=== PATIENT | female | born 1990 | race Caucasian/White ===

== ENCOUNTER 2017-09-08 03:06 | Emergency (ER) | payer OTHER, SELFPAY ==
[2017-09-08 03:07] VITALS: BP 137/97; PULSE 82; RESP 18; TEMP 36.4; O2SAT 100; BMI 37.5
[2017-09-08 03:16] LABS: Bedside Glucose 59 mg/dL (70-110)
--- NOTE | 2017-09-08 03:34 | ED.VISSUMM ---
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 She sat down to [facility] and was witnessed having altered mental status. Patient stated she remembers taking a bite of her food and felt like it was in her throat and then blacked out. She has had syncope remotely. She is on a diet currently. She is unsure what happened. Discussed with the aid what she saw. She stated that the patient had some shaking of her upper extremities and head. She did not awake her. Then she awoke without any postictal state and did not remember what happened. Brought now for further evaluation. Has never happened before. She feels normal. Physical Examination: [] Vital signs reviewed General: Well-nourished well-developed Head: Normocephalic atraumatic Eyes: Pupils equal round and reactive to light extraocular movements intact ENT: TMs clear no hemotympanum no trauma Neck: Nontender full range of motion Cardiovascular: Regular rate rhythm no murmurs normal S1-S2 Respiratory: No distress clear to auscultation bilaterally chest nontender Abdomen: Soft nontender nondistended normal bowel sounds no masses Back: Nontender no CVA tenderness Extremities: Nontender active range of motion ?4 extremities no trauma Skin: Normal color no trauma Neuro alert oriented cranial nerves II through XII intact normal strength sensation reflexes Test Results: [] Emergency Department Course and Treatment: [] Glucose test shows a level 59. Patient given oral challenge to bring that up. She is on no hypoglycemic medications. No history of diabetes. Lab work obtained. Negative for abnormality. Patient tolerated food and soda. Resting comfortably. I think her hypoglycemic event likely secondary to not eating for several hours a new diet and breast-feeding may be causing this to happen. Nonetheless I discussed with the patient the potential causes including insulin secreting tumor and she will follow-up as an outpatient. This is highly unlikely however. I discussed doing a CT of her head and I feel this is unnecessary as well. Patient agrees. She will follow-up and return if she worsens. She will eat more frequently. Treatment Plan: [] Disposition: [] Impression: [] Seizure secondary to hypoglycemic event This note was generated with Quoraation software. It may contain incorrect words, spelling, and punctuation that were not noted in review of the chart prior to signing ED Disposition - Plan for ED Patient: Chief Complaint: Seizure Referrals: Juan Pratt MD [Primary Care Provider] -
[2017-09-08 03:40] LABS: Absolute Lymphocyte Count 2.26 X10^3/ul (0.83-4.51); Absolute Neutrophil Count 4.7 X10^3/uL (2.0-7.7); Basophil# 0.02 X10^3/uL; Basophil% 0.3 % (0-1); Eosinophil# 0.15 X10^3/uL; Hematocrit 42.3 % (37-47); Lymphocyte # 2.26 X10^3/ul (4.0); Lymphocyte % 29.4 % (19-41); Mean Corp Hgb Conc 33.1 g/gl (32-36); Mean Corpuscular Volume 87.6 fL (81-99); Mean Platelet Vol. 10.8 fl (6.2-12.0); Monocyte# 0.53 X10^3/uL; Monocyte% 6.9 % (0-10); Neutrophil # 4.71 X10^3/uL (2.7-7.7); Neutrophil % 61.3 % (47-70); Platelet Count 180 K/mm3 (150-450); RBC Distribution Width CV 12.8 % (11.6-14.6); RBC Distribution Width SD 41.2 fl (35.1-43.9); Red Blood Count 4.83 M/mm3 (4.2-5.4); White Blood Count 7.7 K/mm3 (4.4-11.0)
[2017-09-08 03:41] LABS: POSITIVE COUNT NO; POSITIVE DIFFERENTIAL NO; POSITIVE MORPHOLOGY NO
[2017-09-08 03:50] LABS: Anion Gap 8 (5-15); BUN 19 mg/dL (7-18); BUN/Creat Ratio 26.3 RATIO (10-20); Calcium,Total 9.1 mg/dL (8.5-10.1); Chloride 104 mmol/L (98-107); Creatinine, Serum 0.72 mg/dL (0.55-1.02); EST Glomerular Filtration Rate 101 mL/min (>60); Est Glom Filt Rate - Afr Amer 122 mL/min (>60); Estimated Creatinine Clearance 99.56 ml/min; Glucose 92 mg/dL (74-106); Potassium 3.7 mmol/L (3.5-5.1); Sodium Level 140 mmol/L (136-145)
[2017-09-08 04:01] VITALS: BP 137/75; PULSE 80; RESP 18; O2SAT 100
--- NOTE | 2017-09-08 04:02 | ED.DEP ---
ED Disposition - Plan for ED Patient: Chief Complaint: Seizure Instructions: Hypoglycemia (Low Blood Sugar) Referrals: Juan Pratt MD [Primary Care Provider] -
== END 2017-09-08 04:04 | disposition home or self-care (01) ==
PROVIDERS: Emergency Provider Emergency Medicine; Family Provider Family Medicine; PCP Family Medicine
DX: R56.9 Unspecified convulsions (principal); E16.2 Hypoglycemia, unspecified
CPT/HCPCS: 80048; 82962; 85025; 99282; A4216

== ENCOUNTER → 2018-11-10 | Outpatient (CLI) | payer OTHER, SELFPAY ==
[2018-11-10 17:30] LABS: Thyroid Stim Hormone (TSH) 2.05 uIU/mL (0.358-3.74)
[2018-11-15 11:48] LABS: HPV Reflexed? NOT INDICATED
== END | disposition home or self-care (01) ==
LOC: WOBLAB 14:58
PROVIDERS: Family Provider Family Medicine; PCP Family Medicine; Visit Provider Obstetrics & Gynecology
DX: E03.9 Hypothyroidism, unspecified (principal); Z12.4 Encounter for screening for malignant neoplasm of cervix
CPT/HCPCS: 36415; 84443; 87624; 88175; G0145

== ENCOUNTER → 2019-05-02 14:21 | Outpatient (CLI) | payer OTHER, SELFPAY ==
[2019-05-02 17:42] LABS: Chlamydia Trachomatis by PCR Negative (Negative); Neisserai gonorrhoeae by PCR Negative (Negative); Probe Check PASS; Sample Adequacy Control PASS; Specimen Processing Control PASS
== END ==
PROVIDERS: Family Provider Family Medicine; PCP Family Medicine; Referring Provider Obstetrics & Gynecology; Visit Provider Obstetrics & Gynecology
DX: Z11.3 Encounter for screening for infections with a predominantly sexual mode of transmission (principal); Z32.01 Encounter for pregnancy test, result positive
CPT/HCPCS: 87491; 87591

== ENCOUNTER → 2019-05-08 12:08 | Outpatient (CLI) | payer OTHER, SELFPAY ==
--- NOTE | 2019-05-08 12:10 | US_ITS ---
STUDY: FIRST TRIMESTER OBSTETRICAL ULTRASOUND REASON FOR EXAM: Female, 28 years old initial OB ultrasound. LMP: 02/20/2019. TECHNIQUE: Transabdominal and Transvaginal TECHNICAL QUALITY: Adequate. PRIOR ULTRASOUND: None. FINDINGS: There is visualization of a single gestational sac in a normal intrauterine position. The mean sac diameter (MSD) measures 4.6 cm, indicating an estimated gestational age (EGA) of 10 weeks, 2 days. The gestational sac shape is within normal limits. There is a visualized yolk sac. The yolk sac measures 0.6 cm. The placenta is non-visualized. There is visualization of a live embryo. The crown-rump length (CRL) measures 3.3 cm, indicating an estimated gestational age (EGA) of 9 weeks, 6 days. There is demonstrated cardiac activity with a heart rate of 161 bpm. The estimated gestation age (EGA) by LMP is 11 weeks, 0 days. The estimated date of delivery (DIANE) by LMP is 11/27/2019. The estimated gestation age (EGA) by US is 10 weeks, 0 days. The estimated date of delivery (DIANE) by US is 12/02/2019. The uterus measures 13.3 x 10.2 x 7.6 cm. There is no demonstrated uterine fibroid. The cervix is closed. The right ovary measures 1.7 x 2.0 x 1.9 cm. There is no right ovarian cyst. There is no visualized right adnexal mass or complex lesion. The left ovary is not visualized. There is no fluid in the cul de sac. US/Init OB < 14Wks US IMPRESSION: Single live intrauterine with ultrasound age of 10 weeks and 0 days and estimated date of delivery of 12/04/2019. Normal cardiac activity. Nonvisualized left ovary, remainder of the pelvic ultrasound unremarkable. Electronically Signed: Karis Otero MD at 0:55 EST , Service support ,
== END ==
PROVIDERS: Family Provider Family Medicine; PCP Family Medicine; Referring Provider Obstetrics & Gynecology; Visit Provider Obstetrics & Gynecology
DX: Z34.81 Encounter for supervision of other normal pregnancy, first trimester (principal)
CPT/HCPCS: 76801

== ENCOUNTER → 2019-05-31 14:17 | Outpatient (CLI) | payer OTHER, SELFPAY ==
[2019-05-31 16:02] LABS: Absolute Lymphocyte Count 1.51 X10^3/uL (0.83-4.51); Absolute Neutrophil Count 5.9 X10^3/uL (2.0-7.7); Basophil# 0.02 X10^3/uL; Basophil% 0.2 % (0-1); Eosinophil# 0.08 X10^3/uL; Hemoglobin 13.3 g/dL (12.0-15.0); Lymphocyte # 1.51 X10^3/ul (4.0); Lymphocyte % 18.8 % (19-41); Mean Corp Hgb Conc 33.3 g/dL (32-36); Mean Corpuscular Hgb 29.7 pg (27.0-32.0); Mean Corpuscular Volume 89.3 fL (81-99); Mean Platelet Vol. 10.9 fl (6.2-12.0); Monocyte# 0.46 X10^3/uL; Monocyte% 5.7 % (0-10); NRBC Flagged by Analyzer 0 % (0-5); Neutrophil # 5.92 X10^3/uL (2.7-7.7); Neutrophil % 73.9 % (47-70); Platelet Count 197 K/mm3 (150-450); RBC Distribution Width CV 12.7 % (11.6-14.6); RBC Distribution Width SD 41.7 fl (35.1-43.9); Red Blood Count 4.48 M/mm3 (4.2-5.4)
[2019-05-31 16:12] LABS: Glucose, Dipstick Normal (Normal); Ketone-Dipstick Negative (Negative); Leukocyte Esterase-Dipstick Negative /ul (Negative); Nitrite-Dipstick Negative (Negative); Occult Blood-Urine Negative /ul (Negative); Protein-Dipstick Negative (Negative); Urine Bilirubin Dipstick Negative (Negative); Urine Urobilinogen Normal (Normal)
[2019-05-31 16:15] LABS: Amphetamine Urine VISTA NEGATIVE (<1000 ng/mL); Barbiturate Urine VISTA NEGATIVE (< 200 ng/mL); Benzodiazepine Urine VISTA NEGATIVE (< 200 ng/mL); Cocaine Urine VISTA NEGATIVE (< 300 ng/mL); Ecstacy Urine VISTA NEGATIVE (< 500 ng/mL); Methadone Urine VISTA NEGATIVE (< 300 ng/mL); PCP Urine VISTA NEGATIVE (< 25 ng/mL); THC Urine VISTA NEGATIVE (< 50 ng/mL); Vista UDS pH Range 7
[2019-05-31 16:20] LABS: Free T3 2.3 pg/mL (2.18-3.98); T4 Free Direct 0.95 ng/dL (0.76-1.46); Thyroid Stim Hormone (TSH) 2.11 uIU/mL (0.358-3.74)
[2019-05-31 16:26] LABS: Color, Urine Yellow (Yellow); Urine Clarity Clear (Clear)
[2019-06-01 02:17] LABS: Prenatal RPR NONREACTIVE (NONREACTIVE)
[2019-06-01 10:01] LABS: HIV - WCH Non-Reactive (Nonreactive); Hepatitis B Surface Antigen Non-Reactive (Nonreactive); Hepatitis C Antibody Non-Reactive (Nonreactive); Vitamin D,25 Hydroxy 16.9 ng/mL (29.95-100.01)
== END ==
PROVIDERS: Visit Provider Obstetrics & Gynecology
DX: Z34.81 Encounter for supervision of other normal pregnancy, first trimester (principal)
CPT/HCPCS: 36415; 80307; 81002; 82306; 84439; 84443; 84481; 85025; 86703; 86762; 86803; 87340

== ENCOUNTER → 2019-07-14 | Outpatient (CLI) | payer OTHER, SELFPAY ==
--- NOTE | 2019-07-14 07:48 | US_ITS ---
STUDY: SECOND AND THIRD TRIMESTER OBSTETRICAL ULTRASOUND REASON FOR EXAM: Female, 29 years old ANATOMY LMP: February 27, 2019. TECHNIQUE: Transabdominal and Transvaginal TECHNICAL QUALITY: Adequate. PRIOR ULTRASOUND: Comparison is made with prior examination dated May 08, 2019. FINDINGS: There is a single intrauterine fetus. The fetus is in a breech presentation. There is demonstrated cardiac activity with a heart rate of 144 bpm. There is a normal amniotic fluid volume. The largest amniotic fluid pocket measures 4.1 cm x 3.2 cm. The amniotic fluid index (SANGITA) is within normal limits. The placenta is posterior with a complete previa. There are Grade 0 placental changes. The cervix measures 4.8 cm in length. The bilateral adnexal regions are normal. BIOMETRY: BPD: 4.06 cm: 18 weeks, 2 days HC: 16.39 cm: 19 weeks, 0 days AC: 14.45 cm: 19 weeks, 5 days FL: 2.91 cm: 18 weeks, 6 days CI: 69% FL/BPD: 72% FL/HC: FL/AC: 20% HC/AC: 1.13 age by current US: 18 weeks, 6 days. DIANE by current US: December 09, 2019. Estimated weight: 286 grams, +/- 42 grams, 25 %. age by prior US: 19 weeks, 4 days. DIANE by prior US: December 04, 2019. Age by LMP: 19 weeks, 4 days. DIANE by LMP: December 04, 2019. ANATOMY: Gender: Female Cranium: Normal lateral ventricles. Normal choroid plexus. Normal cerebellum. Normal cisterna magna. Normal face, nose and lips. Chest: Normal 4-chamber heart. Abdomen/Pelvis: Normal diaphragm. Normal stomach. Normal abdominal wall. Normal cord insertion. Normal 3 vessel cord. Right renal fullness measuring 2 mm. This is within normal limits. Normal bladder. Spine: Normal cervical spine. Normal thoracic spine. Normal lumbar spine. Normal sacrum. Extremities: Normal bilateral upper extremities. Normal bilateral lower extremities. US/OB Anatomy Scan IMPRESSION: Single live uterine gestation with a mean gestational age of 19 weeks and 4 days. The measurements obtained today following the normal expected range. There is evidence of complete placenta previa. Electronically Signed: Twin Coronel, at 15:14 EST , Service support ,
== END | disposition home or self-care (01) ==
LOC: OPUS 07:47
PROVIDERS: PCP Family Medicine; Referring Provider Obstetrics & Gynecology; Visit Provider Obstetrics & Gynecology
DX: Z34.83 Encounter for supervision of other normal pregnancy, third trimester (principal)
CPT/HCPCS: 76805; 76817

== ENCOUNTER → 2019-09-14 | Outpatient (CLI) | payer OTHER, SELFPAY ==
--- NOTE | 2019-09-14 11:22 | US_ITS ---
STUDY: SECOND AND THIRD TRIMESTER OBSTETRICAL ULTRASOUND - LIMITED REASON FOR EXAM: Female, 29 years old GROWTH LMP: February 27, 2019. PRIOR ULTRASOUND: Comparison is made with prior examination dated July 14, 2019. TECHNIQUE: Transabdominal and Transvaginal TECHNICAL QUALITY: Adequate. FINDINGS: There is a single intrauterine fetus. The fetus is in a cephalic presentation. There is demonstrated cardiac activity with a heart rate of 152 bpm. There is a normal amniotic fluid volume. The largest amniotic fluid pocket measures 4.5 cm x 7.3 cm. The amniotic fluid index (SANGITA) is within normal limits. The placenta is posterior in location and is not low lying. There are Grade 0 placental changes. The cervix measures 4.1 cm in length. BIOMETRY: BPD: 6.7 cm: 27 weeks, 0 days HC: 26.2 cm: 28 weeks, 4 days AC: 24.09 cm: 28 weeks, 3 days FL: 5.3 cm: 28 weeks, 2 days Age by LMP: 28 weeks, 3 days. DIANE by LMP: December 04, 2019. age by prior US: 27 weeks, 5 days. DIANE by prior US: December 09, 2019. age by current US: 28 weeks, 1 days. DIANE by current US: December 06, 2019. Estimated weight: 1193 grams, +/- 174 grams, 30 percentile. US/OB Limited With Biometrics IMPRESSION: Single live intrauterine gestation with a mean gestational age of 27 weeks and 5 days. The measurements obtained today fall within the normal expected range. Electronically Signed: Twin Coronel, at 14:46 EDT , Service support ,
== END | disposition home or self-care (01) ==
LOC: OPUS 11:16
PROVIDERS: PCP Family Medicine; Referring Provider Obstetrics & Gynecology; Visit Provider Obstetrics & Gynecology
DX: O44.02 Complete placenta previa NOS or without hemorrhage, second trimester (principal); Z3A.00 Weeks of gestation of pregnancy not specified
CPT/HCPCS: 76816; 76817

== ENCOUNTER → 2019-09-20 | Outpatient (CLI) | payer OTHER, SELFPAY ==
[2019-09-20 17:56] LABS: Hematocrit 35.3 % (37-47); Hemoglobin 11.2 g/dL (12.0-15.0); Mean Corp Hgb Conc 31.7 g/dL (32-36); Mean Corpuscular Hgb 29.3 pg (27.0-32.0); Mean Corpuscular Volume 92.4 fL (81-99); Mean Platelet Vol. 10.7 fl (6.2-12.0); Platelet Count 182 K/mm3 (150-450); RBC Distribution Width CV 12.5 % (11.6-14.6); RBC Distribution Width SD 41.7 fl (35.1-43.9); Red Blood Count 3.82 M/mm3 (4.2-5.4); White Blood Count 9.9 K/mm3 (4.4-11.0)
[2019-09-20 18:20] LABS: Vitamin D,25 Hydroxy 44.9 ng/mL
[2019-09-20 18:26] LABS: Glucose Challenge Gest 1H 50g 117 mg/dL (70-140); T4 Free Direct 0.76 ng/dL (0.76-1.46); Thyroid Stim Hormone (TSH) 1.55 uIU/mL (0.358-3.74)
== END | disposition home or self-care (01) ==
PROVIDERS: Referring Provider Obstetrics & Gynecology; Visit Provider Obstetrics & Gynecology
DX: O99.283 Endocrine, nutritional and metabolic diseases complicating pregnancy, third trimester (principal); E03.9 Hypothyroidism, unspecified; O26.893 Other specified pregnancy related conditions, third trimester; E55.9 Vitamin D deficiency, unspecified; Z3A.00 Weeks of gestation of pregnancy not specified
CPT/HCPCS: 82306; 82950; 84439; 84443; 84481; 85027

== ENCOUNTER → 2019-11-13 | Outpatient (CLI) | payer OTHER, SELFPAY | END | disposition home or self-care (01) | LOC: LABSPEC 16:17 | PROVIDERS: Visit Provider Obstetrics & Gynecology | DX: Z36.85 Encounter for antenatal screening for Streptococcus B (principal) | CPT/HCPCS: 87081 ==

== ENCOUNTER → 2019-12-08 | Outpatient (CLI) | payer OTHER, SELFPAY | END | disposition home or self-care (01) | LOC: LABSPEC 17:21 | PROVIDERS: PCP Family Medicine; Referring Provider Obstetrics & Gynecology; Visit Provider Obstetrics & Gynecology | DX: Z11.59 Encounter for screening for other viral diseases (principal) | CPT/HCPCS: 87635; G2023; U0003 ==

== ENCOUNTER 2019-12-10 06:50 | Inpatient (IN) | payer OTHER, SELFPAY ==
[2019-12-10] VITALS (28 sets, daily range): BP systolic 101–158; BP diastolic 56–88; PULSE 65–105; RESP 18; TEMP 36.1–36.8; O2SAT 92–100; BMI 43.9
[2019-12-10] MEDS: Lactated Ringers 1,000 ML 50 ML IV (07:45)
[2019-12-10 08:29] LABS: Absolute Lymphocyte Count 1.39 X10^3/uL (0.83-4.51); Absolute Neutrophil Count 5.7 X10^3/uL (2.0-7.7); Basophil# 0.01 X10^3/uL; Basophil% 0.1 % (0-1); Eosinophil# 0.08 X10^3/uL; Hematocrit 36.6 % (37-47); Hemoglobin 11.7 g/dL (12.0-15.0); Lymphocyte # 1.39 X10^3/ul (4.0); Lymphocyte % 17.9 % (19-41); Mean Corpuscular Volume 90.8 fL (81-99); Mean Platelet Vol. 11.2 fl (6.2-12.0); Monocyte# 0.58 X10^3/uL; Monocyte% 7.5 % (0-10); NRBC Flagged by Analyzer 0 % (0-5); Neutrophil # 5.66 X10^3/uL (2.7-7.7); Neutrophil % 73.1 % (47-70); Platelet Count 164 K/mm3 (150-450); RBC Distribution Width CV 14.5 % (11.6-14.6); Red Blood Count 4.03 M/mm3 (4.2-5.4); White Blood Count 7.8 K/mm3 (4.4-11.0)
[2019-12-10] MEDS: Oxytocin 30 units/NS 500 ml 30 UNITS/500 ML IV.SOLN IV (08:44)
--- NOTE | 2019-12-10 09:52 | PCM.HP.OB ---
- Problem List (1) 40 weeks gestation of Status: Acute History Date of Admission: 12/10/19 Final DIANE: 12/04/19 Final DIANE Source: US <20 weeks Gestational age: 40 Weeks and 6 Days History of this : This is a 29 year-old, G [2], P [1], at 40 6/7 weeks gestational age presenting for scheduled induction of labor. Medical History: Medical History (Last Updated 12/10/19 @ 09:[address] Ann Forman MD) Hx of migraine headaches Z86.69 Subclinical hypothyroidism E03.9 Allergies No Known Allergies Allergy (Unverified 09/08/17 03:11) Home Medications: Home Medications Vits [Prenatabs FA] 1 tablet PO DAILY 03/16/17 Ergocalciferol [Vitamin D] 5,000 unit PO DAILY 12/10/19 Smoking Status: Never smoker Alcohol: None Number of Fetus(es): 1 NST - FHR Rate Baby A Baseline: 140 Variability:: Moderate Accelerations:: None Decelerations:: None NST Reactive:: Non-Reactive FHR Category:: Category I Uterine Activity:: 2/10 min History Past Pregnancies: Past Pregnancies Delivery Date Name GA/ Weeks Outcome Route Wt Infant Sex Labor Length Anesthesia Delivery Location Provider FOB 03/2017 [place] 41 Vaginal [id number] M 18 Epidural Lawrence Juan Guardado Labs: Mom's Labs & Results 12/10/19 12/10/19 07:45 07:45 WBC 7.8 RBC 4.03 L Hgb 11.7 L Hct 36.6 L MCV 90.8 MCH 29.0 MCHC 32.0 RDW Std Deviation 48.0 H RDW Coeff of Litzy 14.5 Plt Count 164 MPV 11.2 Immature Gran % (Auto) 0.400 Neut % (Auto) 73.1 H Lymph % (Auto) 17.9 L [place] % (Auto) 7.5 Eos % (Auto) 1.0 Baso % (Auto) 0.1 Absolute Neuts (auto) 5.7 Absolute Lymphs (auto) 1.39 Nucleated RBC % 0 Blood Type Pending Antibody Screen Pending Course Did the patient receive Yes care? Labs Blood Type: A RH: POSITIVE RPR/VDRL/Syphilis Nonreactive Rubella status Immune HbSAg Negative Date Done: 05/31/19 Chlamydia Negative Gonorrhea Negative HIV/AIDS Non-Reactive Group B Strep: Negative Current Obstetrical History Gestational Diabetes No Incompetent Cervix No Infertility No IUGR No Macrosomia No Hypertension/Pre-eclampsia No Placenta Previa/Abruption No PTL/PROM No Uterine anomaly No Oligohydramnios No Polyhydramnios No Multiple gestation No Past Medical History Asthma No Diabetes No Hypertension No Heart disease No Mitral valve prolapse No Neurologic/Seizure disorder/ Yes Migraines Kidney disease No Liver disease No Varicosities No Clotting disorders/Hx of DVT No Thyroid Dysfunction Yes Other medical diseases No Psychiatric disorders No Major trauma No Abnormal PAP smear No Sleep apnea No Mammogram in the last 2 years No Social History Marital Status: Alleged father Geo Hx Smoking No Smoking Status Never smoker Expected Delivery Method: Spontaneous Vaginal Number of Visits: 12 Physical Exam Vitals: Vital Signs Temp Pulse BP Pulse Ox 97.3 F L 94 101/58 L 97 12/10/19 07:28 12/10/19 08:53 12/10/19 08:53 12/10/19 07:28 General: Alert, Oriented x3, Cooperative, No apparent distress HEENT: Atraumatic, Normocephalic Cardiovascular: Regular rate, Regular Rhythm Lungs: Normal air movement Abdomen: Soft, Non Tender, Non-Distended, Gravid Extremities:: No edema Neurological: Neuro grossly intact BOTTOM POUNDER CEMENT SHOES: Normal external genitalia Estimated gestational size: Appropriate for gestational size Presentation: Cephalic Cervix Dilation (cm): 4.5 Station: -3 Effacement (%): 60 - moderate, midposition Assessment/Plan All Active Problems (Last Updated 12/10/19 @ 09:[address] Ann Forman MD) (spontaneous vaginal delivery) (Acute) 40 weeks gestation of (Acute) This is a 29 year-old, G [2], P [1], at 40 6/7 weeks gestational age, Cat I FHR -Pitocin -Amniotomy performed with clear fluid Procedure Criteria Procedure Type: Elective COVID Risk Discussion: The surgeon/proceduralist and patient have discussed in detail the risk of exposure to and/or potential harm posed by the COVID-19 virus with having a surgery/procedure at this time versus the risk of delaying the surgery/procedure. It is not possible to know either the risk of delaying the surgery or procedure or chance of getting an infection with perfect accuracy, but a joint decision was made between the patient and the surgeon/proceduralist to proceed at this time with the scheduled surgery/procedure as indicated on the consent form.
[2019-12-10] MEDS: Lactated Ringers 500 ML 999 ML IV ×2 (10:15→11:33)
[2019-12-10] MEDS: fentaNYL-bupivacaine (epidural) 100 ML BAG EPIDURAL (11:06)
[2019-12-10] MEDS: Oxytocin 30 units/NS 500 ml 30 UNITS/500 ML IV.SOLN 334 UNITS IV (13:13)
--- NOTE | 2019-12-10 13:51 | OP.PCM_ITS ---
Problem List (1) 40 weeks gestation of Status: Acute (2) Vacuum-assisted vaginal delivery Status: Acute Report of Operation Date of Procedure: 12/10/19 Vaginal Delivery Maternal Presentation: Medically Indicated Induction Method of Induction: Pitocin, Amniotomy Amniotic Membrane Rupture Type: Artificial Rupture of Membrane time: 12/10/19920 Amniotic Fluid Description: Clear Final DIANE: 12/04/19 Final DIANE Source: US <20 weeks Gestational age: 40 Weeks and 6 Days doctor who attended delivery (if requested by OB): Sherley Luna Date of Procedure: 12/10/19 Pre-Operative Diagnosis: 40 6/7 weeks gestation Post-Operative Diagnosis: 40 6/7 weeks gestation Surgery/ Procedure Performed: Vacuum Assisted Vaginal Delivery Anesthesiologist: Emilee Tubbs Type of Anesthesia: Epidural Description of Procedure: Patient was fully dilated and +1 station in [place]OSHA. She initially started pushing with recurrent variable decelerations. We stopped pushing in the labor down for additional 20 minutes with improvement of the variable decelerations. We resumed maternal expulsive efforts with recurrence of variable decelerations and category 2 heart rate tracing. I advised vacuum assisted delivery. Vacuum related risks, indications and benefits were reviewed. Patient desired to proceed. The Kiwi Was placed at the flexion point and 500 mm suction applied at +3 station. Over 3 pulls the head delivered. There were no pop offs . The suction was released and the Kiwi removed. A tight nuchal cord was present. The infant shoulders delivered with ease revealing a female infant and the cord was immediately reduced. The was placed on the maternal abdomen further attended by nursery personnel. The cord was doubly clamped and cut at approximately 2 minutes of life. Cord gases were obtained. The placenta delivered spontaneously and appeared intact on inspection. A second-degree perineal laceration with vaginal extension was repaired using 3- 0 Vicryl repeat. There is good hemostasis. Sponge and needle counts were correct x2. Presentation: Vertex Placental Delivery Description: Spontaneous Placenta Disposition: [facility] Cord Vessel Description: 3 Vessels Nuchal Cord Compression: With compression Cord Gases drawn per routine: ABG, VBG Cord Entanglement: Around neck x 1, tight Drain: Mcgrath to straight drain Estimated Blood Loss: 200 ML Infant A gender: Female (1 minute): 8 (5 minute): 9 Episiotomy Description: None Laceration: Midline, Perineal Extension/lac, Vaginal Extension/lac, 2nd degree Medications given after delivery: IV Pitocin Complications: None
[2019-12-10] MEDS: 0.9% Saline Lock 10 ML Syringe IV (15:55)
[2019-12-10] MEDS: Ibuprofen 600 MG Tablet PO (21:21)
[2019-12-11] VITALS (8 sets, daily range): BP systolic 115–125; BP diastolic 69–75; PULSE 80–90; RESP 18–20; TEMP 36.3–36.6; O2SAT 96–98
--- NOTE | 2019-12-11 08:26 | PN.OBGYN_ITS ---
Patient Problems: Active and Suspected Problems (Last Updated 12/10/19 @ 09:[address] Ann Forman MD) Vacuum-assisted vaginal delivery (Acute) Subjective: No issues overnight. Denies voiding difficulty, heavy lochia. Infant nursing well. Objective: AVSS - Physical Exam Vitals/I&O's: Vital Signs Temp Pulse Resp BP Pulse Ox 97.6 F L 85 18 119/75 100 12/11/19 04:18 12/11/19 04:20 12/11/19 04:18 12/11/19 04:20 12/10/19 12:07 Oxygen Delivery Method Room Air Weight: 116 kg Body Mass Index (BMI) 43.9 Intake and Output for Last 24 Hours 12/09/19 12/10/19 12/11/19 23:59 23:59 23:59 Intake Total 2032.97 / 2032.97 Output Total 1250 / 1250 Balance 782.97 / 782.97 General: Alert, Oriented x3, Cooperative, No apparent distress HEENT: Atraumatic, Normocephalic Lungs: Clear to auscultation, Normal air movement Cardiovascular: Regular rate, Regular Rhythm, Normal S1, Normal S2 Abdomen: Soft, Non Tender, Non-Distended, - - Fundus firm and nontender Extremities: No Calf Tenderness, - - +1 b/l LE edema Neurological: Neuro grossly intact Psych/Mental Status: Normal Affect, Appropriate, Alert and oriented to time, place, person, mood and affect Laboratory Results 12/10/19 07:45: WBC 7.8, RBC 4.03 L, Hgb 11.7 L, Hct 36.6 L, MCV 90.8, MCH 29.0, MCHC 32.0, RDW Std Deviation 48.0 H, RDW Coeff of Litzy 14.5, Plt Count 164, MPV 11.2, Immature Gran % (Auto) 0.400, Neut % (Auto) 73.1 H, Lymph % (Auto) 17.9 L, [place] % (Auto) 7.5, Eos % (Auto) 1.0, Baso % (Auto) 0.1, Absolute Neuts (auto) 5.7, Absolute Lymphs (auto) 1.39, Nucleated RBC % 0 12/10/19 07:45: Blood Type A POSITIVE, Antibody Screen NEGATIVE Current Medications Acetaminophen (Tylenol) 325 - 650 mg PO Q4H PRN PRN PRN Reason: Pain Score 1-3/10 Bisacodyl (Dulcolax) 10 mg RECTAL UD PRN PRN Reason: If no BM Dibucaine (Dibucaine) 1 applic TOPICAL TID PRN PRN; Protocol PRN Reason: Discomfort Hydrocortisone (Hytone) 1 applic TOPICAL TID PRN PRN; Protocol PRN Reason: Discomfort Ibuprofen (Motrin) 600 mg PO Q6H PRN PRN PRN Reason: Pain Score 1-3/10 Last Admin: 12/10/19 21:21 Dose: 600 mg Documented by: Methylergonovine Maleate (Methergine) 0.2 mg IM X1 PRN PRN Reason: Excess bleeding/uterine atony Ondansetron HCl (Zofran) 4 mg IV Q4H PRN PRN PRN Reason: NAUSEA Multivit/Folic Acid/Iron (Prenatabs Fa) 1 tablet PO DAILY JANNETH Senna/Docusate Sodium (Senokot-S, Veronica-Colace) 1 - 2 tablet PO DAILY PRN PRN PRN Reason: Constipation Simethicone (Mylicon) 80 mg PO PCHS PRN PRN Reason: Indigestion/Stomach pain Sodium Chloride () 5 - 15 ml IV UD PRN PRN Reason: SALINE FLUSH Last Admin: 12/10/19 15:55 Dose: 10 ml Documented by: Medical Necessity - Tobacco Use Smoking Status: Never smoker Assessment/Plan All Active Problems (Last Updated 12/10/19 @ 09:[address] Ann Forman MD) (spontaneous vaginal delivery) (Acute) 40 weeks gestation of (Acute) Vacuum-assisted vaginal delivery (Acute) This is a 29 year-old, G [2], P [2], PPD#1 s/p VAVD doing well. -A positive -Routine care - -Plan for d/c home later today
--- NOTE | 2019-12-11 08:28 | DCINST_ITS ---
Discharge Diet: No Restrictions Discharge Activity: Return to Normal Activity, May Shower, May Take a Tub Bath May resume sexual activity in: 4-6 weeks Additional Instructions: If you experience any of the following, contact your healthcare provider. * Bleeding that soaks a pad every hour for 2 hours * Fever 100.4 or higher * Unrelieved incision or abdominal pain * Swelling, redness, discharge or bleeding from your incision or episiotomy site * Your incision begins to separate * Problems urinating (including inability to urinate or burning while urinating). * Visual changes * Severe headache * Flu-like symptoms * Pain or redness in one of both of your breasts * Pain, warmth, tenderness or swelling in your legs, especially the calf area * Frequent nausea and vomiting * Symptoms of depression or anxiety If you experience any of the following, call 911 or go to the nearest Emergency Room. * Chest pain * Problems breathing * Seizure activity * Partial or complete paralysis of a body part, slurred speech, weakness or corina oping of the face, or a sudden inability to walk or hold your balance Allergies/Adverse Reactions: Allergies No Known Allergies Allergy (Unverified 09/08/17 03:11) Medications to take at Discharge Vits [Prenatabs FA] 1 tablet PO DAILY 03/16/17 Ergocalciferol [Vitamin D] 5,000 unit PO DAILY 12/10/19 Please Follow Up With: Ann Bender MD - Blood pressure check When: 1-2 weeks Please Follow Up With: Ann Bender MD - visit When: 6 weeks Primary Care Physician: Juan Pratt MD [Primary Care Provider] - Test Results: Test results from this visit will be discussed in further detail at your follow- up appointment, if applicable.
--- NOTE | 2019-12-11 08:28 | PCM.DCVAG ---
Discharge Diet: No Restrictions Discharge Activity: Return to Normal Activity, May Shower, May Take a Tub Bath May resume sexual activity in: 4-6 weeks Additional Instructions: If you experience any of the following, contact your healthcare provider. Bleeding that soaks a pad every hour for 2 hours Fever 100.4 or higher Unrelieved incision or abdominal pain Swelling, redness, discharge or bleeding from your incision or episiotomy site Your incision begins to separate Problems urinating (including inability to urinate or burning while urinating). Visual changes Severe headache Flu-like symptoms Pain or redness in one of both of your breasts Pain, warmth, tenderness or swelling in your legs, especially the calf area Frequent nausea and vomiting Symptoms of depression or anxiety If you experience any of the following, call 911 or go to the nearest Emergency Room. Chest pain Problems breathing Seizure activity Partial or complete paralysis of a body part, slurred speech, weakness or drooping of the face, or a sudden inability to walk or hold your balance Allergies/Adverse Reactions: Allergies No Known Allergies Allergy (Unverified 09/08/17 03:11) Medications to take at Discharge Vits [Prenatabs FA] 1 tablet PO DAILY 03/16/17 Ergocalciferol [Vitamin D] 5,000 unit PO DAILY 12/10/19 Please Follow Up With: Ann Bender MD - Blood pressure check When: 1-2 weeks Please Follow Up With: Ann Bender MD - visit When: 6 weeks Primary Care Physician: Juan Pratt MD [Primary Care Provider] - Test Results: Test results from this visit will be discussed in further detail at your follow-up appointment, if applicable.
[2019-12-11] MEDS: Ibuprofen 600 MG Tablet PO (08:44)
[2019-12-11] MEDS: Prenatal Vits Tablet 1 TABLET PO (08:44)
[2019-12-11] MEDS: Senna/Docusate Sodium 1 Tablet PO (08:45)
== END 2019-12-11 15:30 | disposition home or self-care (01) | DRG 807 ==
PROVIDERS: Admitting Provider Obstetrics & Gynecology; PCP Family Medicine; Visit Provider Obstetrics & Gynecology
DX: O48.0 Post-term pregnancy (principal); Z37.0 Single live birth; Z3A.40 40 weeks gestation of pregnancy; O69.1XX0 Labor and delivery complicated by cord around neck, with compression, not applicable or unspecified; O76 Abnormality in fetal heart rate and rhythm complicating labor and delivery; O70.1 Second degree perineal laceration during delivery
CPT/HCPCS: 59050; 85025; 86850; 86900; 86901; 99218; J7120; A4216; G0378

== ENCOUNTER 2020-08-03 10:15 | Outpatient (RCR) | payer OTHER, SELFPAY ==
[2019-12-10 07:55] VITALS: BMI 43.9
== END 2020-08-11 23:59 ==
LOC: EMPH 10:15
PROVIDERS: PCP Family Medicine; Referring Provider Family Medicine Geriatric Medicine; Visit Provider Family Medicine Geriatric Medicine
DX: Z03.818 Encounter for observation for suspected exposure to other biological agents ruled out (principal)
CPT/HCPCS: 87426

== ENCOUNTER → 2022-03-31 | Outpatient (CLI) | payer OTHER, SELFPAY ==
[2022-04-07 17:31] LABS: HPV APTIMA, High Risk Negative (Negative)
== END | disposition home or self-care (01) ==
LOC: LABSPEC 15:11
PROVIDERS: PCP Family Medicine; Referring Provider Nurse Practitioner Women's Health; Visit Provider Nurse Practitioner Women's Health
DX: Z12.4 Encounter for screening for malignant neoplasm of cervix (principal)
CPT/HCPCS: 87624; 88175; G0145

== ENCOUNTER → 2023-09-01 | Outpatient (CLI) | payer MEDICAID, SELFPAY ==
--- NOTE | 2023-09-01 08:12 | BI_ITS ---
MAMMOGRAPHY - BILATERAL SCREENING REASON FOR EXAM: Female, 33 years old. Routine annual screening examination. PERTINENT HISTORY: Grandmother with breast cancer. TECHNIQUE: Digital bilateral breast robert (3D mammographic acquisition) in the CC and MLO projections. 2-D mediolateral oblique (MLO) and craniocaudad (CC) views of both breasts were obtained. CAD: Full Field Digital Mammography with Computer Added Detection was performed. COMPARISON: None. Baseline examination. FINDINGS: Breast Composition: There are scattered areas of fibroglandular density. There are no dominant masses or suspicious calcifications. No other significant abnormalities are identified. BI/SCRN MAMM (CAD)W/ROBERT BILAT IMPRESSION: Negative screening mammogram. Yearly followup mammogram recommended. (A) ASSESSMENT CATEGORY: BIRADS Category 1: Negative. A letter regarding these results will be sent to the patient by the facility within 30 days. Approximately 10% of breast cancers are not detected by mammography. A normal mammogram should not delay biopsy of a clinically suspicious abnormality. [id number] Electronically Signed: Twin Coronel MD at 8:59 EDT ,
== END | disposition home or self-care (01) ==
LOC: OPBI 08:12
PROVIDERS: PCP Family Medicine; Referring Provider Nurse Practitioner Women's Health; Visit Provider Nurse Practitioner Women's Health
DX: Z12.31 Encounter for screening mammogram for malignant neoplasm of breast (principal)
CPT/HCPCS: 77063; 77067

== ENCOUNTER → 2023-11-16 | Outpatient (CLI) | payer MEDICAID, SELFPAY ==
[2023-11-16 18:28] LABS: T4 Free Direct 1.17 ng/dL (0.76-1.46); Thyroid Stim Hormone (TSH) 1.15 uIU/mL (0.358-3.74)
[2023-11-18 04:08] LABS: Thyroid Peroxidase AB 10 IU/mL (0-34)
== END | disposition home or self-care (01) ==
LOC: MFPLAB 15:20
PROVIDERS: PCP Family Medicine; Visit Provider Family Medicine
DX: R79.89 Other specified abnormal findings of blood chemistry (principal)
CPT/HCPCS: 36415; 84439; 84443; 86376